=== PATIENT | male | born 2000 | race Hispanic/Latino ===

== ENCOUNTER 2023-09-21 07:53 | Inpatient (IN) | payer OTHER ==
[2023-09-21] MEDS ORDERED: Dicyclomine 20 MG/2 ML VIAL ONE (08:11)
[2023-09-21] MEDS ORDERED: Ondansetron PF 4 MG/2 ML Vial ONE (08:12)
[2023-09-21] MEDS ORDERED: Ketorolac Tromethamine 30 MG (1 mL) VIAL ONE ×2 (08:12→10:39)
[2023-09-21] MEDS ORDERED: Morphine 4 MG/ML VIAL ONE ×2 (08:16→10:39)
[2023-09-21 08:24] LABS: #Eosinphils 0.1 thou/uL (0.0-0.7); #Monocytes 0.6 thou/uL (0.11-0.59); #Neutrophils 5.7 thou/uL (1.40-6.50); %Basophils 0.1 % (0.0-1.0); %Eosinophils 1.1 % (0.0-10.0); %Lymphocytes 12.7 % (21.0-51.0); %Monocytes 7.7 % (0.0-10.0); Hematocrit 41.6 % (42.0-52.0); Hemoglobin 14.1 g/dL (14.0-18.0); Mean Corpuscular HGB CONC 33.9 g/dL (32.0-36.0); Mean Corpuscular Hemoglobin 27.7 pg (27.0-31.0); Mean Corpuscular Volume 81.7 fl (78.0-98.0); Mean Platelet Volume 10.3 fL (7.4-10.4); Platelet Count 254 10x3/uL (130-400); RBC Distribution Width 13.1 % (11.5-14.5); Red Blood Cell (RBC) Count 5.09 mill/uL (4.70-6.10); White Blood Cell (WBC) Count 7.3 10x3/uL (4.8-10.8)
[2023-09-21 08:39] LABS: ALT (SGPT) 392 U/L (8-55); AST (SGOT) 238 U/L (5-34); Albumin 4.4 g/dL (3.5-5.0); Alkaline Phosphatase 224 U/L (40-110); Anion Gap 13 mmol/L (10-20); BUN (Urea Nitrogen) 8 mg/dL (8.9-20.6); Calc. Creatinine Clearance 0 mL/min (70-130); Calcium 9.9 mg/dL (7.8-10.44); Carbon Dioxide 25 mmol/L (22-29); Chloride 102 mmol/L (98-107); Estimated GFR 124; Globulin 3.2 g/dL (2.4-3.5); Glucose 124 mg/dL (70-105); Lipase 7 U/L (8-78); Potassium 4.1 mmol/L (3.5-5.1); Protein, Total 7.6 g/dL (6.0-8.3); Sodium 136 mmol/L (136-145)
[2023-09-21] MEDS ORDERED: Piperacillin/Tazobactam 4.5 GM VIAL ONE (09:35)
[2023-09-21] MEDS ORDERED: Sodium Chloride 0.9% 100 ML ONE (09:36)
[2023-09-21 11:51] VITALS: BMI 34.8
[2023-09-21] MEDS ORDERED: Ipratropium/Albuterol 3 ML NEB NEB PRN (12:23)
[2023-09-21] MEDS ORDERED: Calcium Carbonate 500 MG ChewTAB PO PRN (12:23)
[2023-09-21] MEDS ORDERED: Glucagon 1 MG/ML KIT IM PRN (12:23)
[2023-09-21] MEDS ORDERED: Promethazine HCl 25 MG/ML VIAL IM PRN (12:23)
[2023-09-21] MEDS ORDERED: Dextrose 5% in Water 1,000 ML IV PRN (12:23)
[2023-09-21] MEDS ORDERED: Dextrose 50% Abboject 50 ML SYRINGE SLOW IVP PRN (12:23)
[2023-09-21] MEDS ORDERED: hydrALAZINE 20 MG/ML VIAL SLOW IVP PRN (12:23)
[2023-09-21] MEDS ORDERED: Mag-Al 1200 mg/1200 mg/30 ML UDCUP PO PRN (12:23)
[2023-09-21] MEDS ORDERED: Ondansetron PF 4 MG/2 ML Vial IVP PRN (12:23)
[2023-09-21] MEDS ORDERED: Morphine 2 MG/ML VIAL SLOW IVP PRN (12:25)
[2023-09-21] MEDS: cefOXitin 2 GM in Sodium Chloride 0.9% 100 ML IVPB SCH (13:47)
[2023-09-21] MEDS: D5 1/2 NS w/20 mEq KCL 1,000 ML IV SCH (13:47)
[2023-09-21] MEDS: Morphine 4 MG/ML VIAL SLOW IVP PRN (15:20)
[2023-09-21] MEDS: Famotidine 20 MG TAB PO SCH (21:15)
[2023-09-21] MEDS: Famotidine/PF 20 mg/2ml Vial SLOW IVP SCH (21:16)
[2023-09-22 04:01] LABS: #Eosinphils 0.2 thou/uL (0.0-0.7); #Monocytes 0.7 thou/uL (0.11-0.59); #Neutrophils 3.9 thou/uL (1.40-6.50); %Basophils 0.2 % (0.0-1.0); %Eosinophils 3.1 % (0.0-10.0); %Lymphocytes 24.5 % (21.0-51.0); %Monocytes 11.5 % (0.0-10.0); %Neutrophils 60.2 % (42.0-75.0); Hematocrit 40.2 % (42.0-52.0); Mean Corpuscular HGB CONC 32.3 g/dL (32.0-36.0); Mean Corpuscular Hemoglobin 27.5 pg (27.0-31.0); Mean Platelet Volume 10.3 fL (7.4-10.4); Platelet Count 256 10x3/uL (130-400); RBC Distribution Width 13.4 % (11.5-14.5); Red Blood Cell (RBC) Count 4.73 mill/uL (4.70-6.10); White Blood Cell (WBC) Count 6.5 10x3/uL (4.8-10.8)
[2023-09-22 04:40] LABS: ALT (SGPT) 318 U/L (8-55); Albumin 3.9 g/dL (3.5-5.0); Alkaline Phosphatase 268 U/L (40-110); Anion Gap 11 mmol/L (10-20); BUN (Urea Nitrogen) 6 mg/dL (8.9-20.6); Bilirubin, Total 7.9 mg/dL (0.2-1.2); Calc. Creatinine Clearance 167 mL/min (70-130); Calcium 9.5 mg/dL (7.8-10.44); Carbon Dioxide 25 mmol/L (22-29); Chloride 104 mmol/L (98-107); Estimated GFR 123; Globulin 2.8 g/dL (2.4-3.5); Glucose 104 mg/dL (70-105); Lipase 15 U/L (8-78); Potassium 4.4 mmol/L (3.5-5.1); Protein, Total 6.7 g/dL (6.0-8.3); Sodium 136 mmol/L (136-145)
[2023-09-22 04:52] LABS: AST (SGOT) 114 U/L (5-34)
[2023-09-22] MEDS ORDERED: Lidocaine 1% PF 5 ML VIAL ONE (10:23)
[2023-09-22] MEDS ORDERED: PROPOFOL 20 ML ONE (10:23)
[2023-09-22] MEDS ORDERED: fentaNYL PF 100 MCG/2 ML SYRINGE ONE ×2 (10:23→13:02)
[2023-09-22] MEDS ORDERED: Rocuronium Bromide 10 MG/ML (10ML VIAL) ONE (10:23)
[2023-09-22] MEDS ORDERED: EPINEPHrine 1 MG/ML VIAL ONE (11:31)
[2023-09-22] MEDS ORDERED: Indocyanine Green 25 MG/10 ML VIAL ONE (11:31)
[2023-09-22] MEDS ORDERED: Bupivacaine 0.25% HCL 30 ML VIAL ONE (11:32)
[2023-09-22] MEDS ORDERED: cefOXitin 2 GM VIAL ONE (11:33)
[2023-09-22] MEDS ORDERED: Sodium Chloride 0.9% 100 ML ONE (11:33)
[2023-09-22] MEDS ORDERED: Midazolam HCl 2 mg/2 ml Vial ONE (11:39)
[2023-09-22] MEDS ORDERED: Dexamethasone 20 MG/5 ML VIAL ONE (11:39)
[2023-09-22] MEDS ORDERED: Indomethacin 50 MG SUPP ONE (12:17)
[2023-09-22] MEDS ORDERED: Iopamidol 15 ML ONE (12:18)
[2023-09-22] MEDS ORDERED: Glycopyrrolate 0.2 MG/ML 5 ML SYRINGE ONE (12:40)
[2023-09-22] MEDS ORDERED: SUGAMMADEX SODIUM 200 MG/2 ML VIAL ONE ×2 (13:37→13:45)
[2023-09-22] MEDS ORDERED: fentaNYL 50 mcg/mL 1 mL Vial ONE (14:42)
[2023-09-22] MEDS ORDERED: traMADol HCl 50 MG TAB PO PRN (15:45)
[2023-09-22] MEDS: traMADol HCl 50 MG TAB PO PRN (17:22)
[2023-09-22] MEDS: Ketorolac Tromethamine 30 MG (1 mL) VIAL IVP PRN (20:55)
[2023-09-23 08:14] VITALS: BP 134/80; TEMP 98
== END 2023-09-23 10:52 | disposition home or self-care (01) | DRG 419 ==
LOC: ERS 07:53 → SJJU 10:13
PROVIDERS: ADMIT Surgery; ATTEND Surgery
PROC: 0FT44ZZ Resection of Gallbladder, Percutaneous Endoscopic Approach (ICD-10-PCS; principal; 2023-09-22)
PROC: 0FC98ZZ Extirpation of Matter from Common Bile Duct, Via Natural or Artificial Opening Endoscopic (ICD-10-PCS; 2023-09-22)
DX: K80.46 Calculus of bile duct with acute and chronic cholecystitis without obstruction (principal); K82.A1 Gangrene of gallbladder in cholecystitis
CPT/HCPCS: 36415; 76705; 80053; 83690; 85025; 88304; 96365; 96366; 96372; 96375; 96376; C1769; C1889; J0171; J0665; J0694; J1100; J1885; J2250; J2270; J2405; J2543; J2704; J3010; J3480; J3490; Q9967; S0028